=== PATIENT | male | born 1960 | race Caucasian/White ===

== ENCOUNTER 2017-03-06 12:16 | Emergency (ER) | payer MEDICAID ==
[~2017-03-06] VITALS: Ht 167.6 cm; Wt 51.3 kg
[2017-03-06] MEDS ORDERED: METOPROLOL TART25 MG ORAL (12:39)
[2017-03-06] MEDS ORDERED: LEXAPRO20 MG ORAL (12:39)
--- NOTE | 2017-03-06 12:55 | Emergency Room Report ---
History of Present Illness General Chief Complaint: General Complaint Source: Patient Present Illness HPI The patient is a 56-year-old male with a history of depression and hypertension presenting for hypertension. The patient was at his primary doctor's office when his blood pressure was revealed to be approximately 200/150. The patient states that he usually takes metoprolol but has not for the past 5 days due to insurance trouble. His primary care doctor gave him a dose of clonidine and told him to go to the emergency department. He denies any feelings of shortness of breath, headache, or chest pain. The patient states that he presented to the primary doctor for a rash which he noticed one week prior. He states that there have been bedbugs at his board and care facility. He states that this rash is itchy and denies any pain. He has noticed it on his torso and extremities. He also admits to feeling of burning in the abdomen followed by saliva in his mouth which began yesterday after eating. He denies any other symptoms including nausea, vomiting, fever, chills, palpitations, abdominal pain, back pain, chest pain, shortness of breath Allergies: Coded Allergies: AMPICILLIN (Verified Allergy, Unknown, 03/06/17) ERYTHROMYCIN BASE (Verified Allergy, Unknown, 03/06/17) PENICILLINS (Verified Allergy, Unknown, 03/06/17) Patient History Past Medical History: see triage record Pertinent Family History: none, HTN Reviewed Nursing Documentation: PMH: Agreed, PSxH: Agreed Nursing Documentation-PM Past Medical History: No History, Except For Hx Hypertension: Yes Review of Systems All Other Systems: negative except mentioned in HPI Physical Exam Vital Signs Date Time Temp Pulse Resp B/P Pulse Ox O2 Delivery O2 Flow Rate FiO2 03/06/17 12:33 98.2 122 18 172/80 98 Room Air Sp02 EP Interpretation: reviewed, normal General Appearance: no apparent distress, alert, GCS 15, non-toxic Head: normocephalic, atraumatic Eyes: bilateral eye PERRL, bilateral eye normal inspection ENT: hearing grossly normal, normal pharynx, no angioedema, normal voice Neck: full range of motion, supple/symm/no masses Respiratory: chest non-tender, lungs clear, normal breath sounds, no accessory muscle use, no wheezing, speaking full sentences Cardiovascular #1: regular rate, rhythm, no edema, no JVD, no murmur, no rub Cardiovascular #2: 2+ carotid (R), 2+ carotid (L), 2+ radial (R), 2+ radial (L) , 2+ dorsalis pedis (R), 2+ dorsalis pedis (L) Gastrointestinal: normal bowel sounds, non tender, soft, non-distended, no guarding, no rebound Genitourinary: normal inspection, no CVA tenderness Musculoskeletal: back normal, gait/station normal, normal range of motion, non- tender Neurologic: alert, oriented x3, responsive, motor strength/tone normal, sensory intact, speech normal Psychiatric: judgement/insight normal, memory normal, mood/affect normal, no suicidal/homicidal ideation Skin: normal turgor, rash - multiple diffuse 1cm in diameter circular erythematous macules on extremities, back, abd abdomen. Non tender. Lymphatic: no adenopathy Medical Decision Making PA Attestation Dr. Martinez is my supervising physician. Patient management was discussed with my supervising physician Diagnostic Impression: Primary Impression: Hypertension Qualified Codes: I10 - Essential (primary) hypertension Additional Impressions: Insect bite Qualified Codes: W57.XXXA - Bitten or stung by nonvenomous insect and other nonvenomous arthropods, initial encounter GERD (gastroesophageal reflux disease) Qualified Codes: K21.9 - Gastro-esophageal reflux disease without esophagitis ER Course The patient is a 56-year-old male presenting for hypertension, rash, and indigestion Differential diagnoses considered but not limited to: GERD, esophagitis, gastroenteritis, ACS, hypertension, hypertensive emergency, cellulitis, insect bite, among others PE: Pt is hypertensive. NAD RRR. No MRG. Lungs CTA bilat Abdomen: Normal appearance. Non distended. No ecchymosis. Normal BS. Non TTP. No McBurney point tenderness. No guarding. No CVA tenderness Skin warm and dry. Has multiple erythematous macules. No lesions in web spaces. No scaling. Nu burrows The patient is given a GI cocktail and feels better The patient was given clonidine just prior to arrival for hypertension To be discharged home with a prescription for omeprazole, topical steroids, and needs to follow up with primary doctor. He states he was given a refill of metoprolol for his primary doctor and will return for followup as soon as possible. ER precautions given Last Vital Signs Date Time Temp Pulse Resp B/P Pulse Ox O2 Delivery O2 Flow Rate FiO2 03/06/17 12:33 98.2 122 18 172/80 98 Room Air Status: improved Disposition: HOME, SELF-CARE Condition: Improved Scripts Hydrocortisone 1% cream (Hydrocortisone 1% cream) Y Cr 28.4 GM TP Q12HR, #28 GM Prov: KACIE DAVIS P.A. 03/06/17 Diphenhydramine Hcl* (BENADRYL*) 25 Mg Capsule 25 MG ORAL Q6H Y for Itching, #15 CAP Prov: KACIE DAVIS P.A. 03/06/17 Omeprazole (OMEPRAZOLE) 20 Mg Capsule. 20 MG ORAL DAILY, #30 CAP Prov: KACIE DAVIS P.A. 03/06/17 KACIE DAVIS P.A. Mar 06, 2017 12:55
[2017-03-06] MEDS ORDERED: Mylanta II UD 30ml ORAL ONE (13:00)
[2017-03-06] MEDS ORDERED: Lidocaine 2% Visc 15ml soln ORAL ONE (13:00)
[2017-03-06] MEDS ORDERED: Dicyclomine HCl 10mg/5ml oral soln ORAL ONE (13:00)
[2017-03-06 13:15] VITALS: BP 172/80
[2017-03-06] MEDS ORDERED: HYDROCORTISON28.4 G5 TP (13:21)
[2017-03-06] MEDS ORDERED: BENADRYL25 MG ORAL (13:21)
[2017-03-06] MEDS ORDERED: OMEPRAZOLE20 M2 ORAL (13:21)
[2017-03-06 13:53] VITALS: BP 131/79
== END 2017-03-06 13:53 | disposition home or self-care (01) ==
LOC: EMR 13:37
DX: I10 Essential (primary) hypertension (principal); T14.8 Other injury of unspecified body region; W57.XXXA Bitten or stung by nonvenomous insect and other nonvenomous arthropods, initial encounter; Y92.199 Unspecified place in other specified residential institution as the place of occurrence of the external cause; R21 Rash and other nonspecific skin eruption; K21.9 Gastro-esophageal reflux disease without esophagitis
CPT/HCPCS: 99284